=== PATIENT | male | born 1965 | race African-American/Black ===

== ENCOUNTER 2020-07-08 11:05 | Inpatient (IN) ==
[~2020-07-08 11:05] MED LIST: ASPIRIN 325 MG TABLET PO ONE; DIAZEPAM 5 MG TABLET PO ONE; MAGNESIUM SULF RIDER 2 GM in PREMIX 1 EACH IV PRN; POTASSIUM CHLORIDE RIDER 10 MEQ in PREMIX 1 EACH IV PRN; diphenhydrAMINE CAP 50 MG CAPSULE PO ONE
[2020-07-08] MEDS ORDERED: ASPIRIN 325 MG TABLET ONE (12:05)
[2020-07-08] MEDS ORDERED: diphenhydrAMINE CAP 50 MG CAPSULE ONE (12:05)
[2020-07-08] MEDS ORDERED: DIAZEPAM 5 MG TABLET ONE (12:05)
[2020-07-08] MEDS: SODIUM CHLORIDE 0.9% 1,000 ML IV SCH (12:07)
[2020-07-08 12:10] LABS: Basophils % 0.1 % (0.0-0.8); Hematocrit 21.2 VOL% (42.0-52.0); Hemoglobin 6.8 GM/DL (14.0-18.0); Immature Granulocytes % 1.1 %; Immature Granulocytes Absolute 0.29 #; Lymphocytes # 2.4 10*3/uL (1.4-4.0); Lymphocytes % 9.6 % (21.2-54.2); Mean Corpuscular HGB Conc 32.1 GM/DL (32-36); Mean Platelet Volume 8.8 FL (9.6-12.0); Monocytes % 5.5 % (1.7-12.7); NRBC # 0.06 10*3/uL; Neutrophils % 83.7 % (38.7-73.9); Platelet Count 627 T/CUMM (130-400); Red Blood Count 2.33 MC/CUMM (3.8-5.5); Red Cell Distribution Width 13.8 % (9.3-17.3); White Blood Count 25.5 T/CUMM (4-12)
[2020-07-08 12:22] LABS: INR 1.4; PT Patient Result 14.6 SECS (9.8-11.9)
[2020-07-08] MEDS ORDERED: SODIUM CHLORIDE 0.9% 1,000 ML IV PRN (12:27)
[2020-07-08 12:32] LABS: Band Neutrophils 1 % (0-10); Lymphocytes 10 % (20-55); Segmented Neutrophils 84 % (50-85); Total Cells Counted 100
[2020-07-08 12:33] LABS: Anisocytosis 2+; Macrocytosis 1+; Platelet Estimate Increased; Polychromasia Slight
[2020-07-08 13:04] LABS: Alanine Aminotransferase 88 U/L (16-61); Alkaline Phosphatase 73 U/L (45-117); Aspartate Amino Transferase 57 U/L (0-37); Bilirubin,Total < 0.39 MG/DL (0.2-1.0); Blood Urea Nitrogen 21 MG/DL (7-18); Calcium 8.8 MG/DL (8.5-10.1); Carbon Dioxide 26 MMOL/L (21-32); Estimated Glom Filtration Rate 110 ML/MIN; Glucose 129 MG/DL (74-106); Osmolality,Calculated 274.1 MOS/KG (273-304); Potassium 3.6 MMOL/L (3.5-5.1); Sodium 135 MMOL/L (136-145); Total Protein 7.4 G/DL (6.4-8.3)
[2020-07-08] MEDS ORDERED: ACETAMINOPHEN 500 MG TABLET PO PRN (13:19)
[2020-07-08] MEDS: PIPERACILLIN/TAZOBACTAM 3,375 MG in SODIUM CHLORIDE 0.9% 100 ML IV SCH (15:32)
[2020-07-08] MEDS: PANTOPRAZOLE 40 MG TABLET PO SCH ×2 (15:32→21:19)
[2020-07-08] MEDS ORDERED: GLUCAGON 1 MG VIAL IM PRN ×2 (15:39→15:40)
[2020-07-08] MEDS ORDERED: DEXTROSE 50% 25 GM/50 ML VIAL IV PRN ×2 (15:39→15:40)
[2020-07-08] MEDS: INSULIN REGULAR 100 UNIT/ML SUBCUT SCH ×2 (16:41→21:19)
[2020-07-08 20:30] LABS: Bilirubin,Urine Negative (Negative); Blood, Urine Negative (Negative); Glucose,Urine (UA) Negative (Negative); Ketones,Urine Negative (Negative); Nitrite,Urine Negative (Negative); Protein,Urine Negative; RBC,Urine 1 /HPF (0-4); Squamous Epithelial Cell,Urine Occasional /HPF (0-10); Urine Appearance CLEAR (Clear); Urine Color Straw (Yellow); Urine Specific Gravity 1.057 (1.001-1.035); Urine Urobilinogen < 2.0 EU/DL (0.2-1.0); WBC,Urine 1 /HPF (0-6)
[2020-07-08] MEDS: ATORVASTATIN 40 MG TABLET PO SCH (21:19)
[2020-07-08] MEDS: METOPROLOL TARTRATE 25 MG TABLET PO SCH (21:19)
[2020-07-09] MEDS: VANCOMYCIN INJ 1,000 MG in SODIUM CHLORIDE 0.9% 250 ML IV SCH ×3 (00:26→23:23)
[2020-07-09] MEDS: PIPERACILLIN/TAZOBACTAM 3,375 MG in SODIUM CHLORIDE 0.9% 100 ML IV SCH ×3 (01:49→18:49)
[2020-07-09 06:08] LABS: Basophils # 0.1 10*3/uL (0.0-0.2); Basophils % 0.3 % (0.0-0.8); Eosinophils % 0.1 % (0.00-10.9); Hematocrit 25.5 VOL% (42.0-52.0); Hemoglobin 8.3 GM/DL (14.0-18.0); Immature Granulocytes % 1.3 %; Immature Granulocytes Absolute 0.26 #; Lymphocytes # 1.6 10*3/uL (1.4-4.0); Mean Corpuscular HGB Conc 32.5 GM/DL (32-36); Mean Corpuscular Volume 90.7 FL (87-102); Mean Platelet Volume 8.5 FL (9.6-12.0); Monocytes % 7.5 % (1.7-12.7); NRBC # 0.08 10*3/uL; Neutrophils % 82.8 % (38.7-73.9); Platelet Count 437 T/CUMM (130-400); Red Blood Count 2.81 MC/CUMM (3.8-5.5); Red Cell Distribution Width 13.6 % (9.3-17.3); White Blood Count 19.9 T/CUMM (4-12)
[2020-07-09 06:52] LABS: Calcium 8.6 MG/DL (8.5-10.1); Osmolality,Calculated 276.7 MOS/KG (273-304); Potassium 3.5 MMOL/L (3.5-5.1)
[2020-07-09] MEDS: INSULIN REGULAR 100 UNIT/ML SUBCUT SCH ×4 (07:46→20:16)
[2020-07-09] MEDS ORDERED: SODIUM CHLORIDE 0.9% 1,000 ML IV PRN (10:00)
[2020-07-09] MEDS ORDERED: SODIUM CHLORIDE 0.9% 0 ML IV ONE (11:07)
[2020-07-09] MEDS: ASPIRIN CHEW 81 MG TABLET PO SCH (11:13)
[2020-07-09] MEDS: CLOPIDOGREL 75 MG TABLET PO SCH (11:13)
[2020-07-09] MEDS: METOPROLOL TARTRATE 25 MG TABLET PO SCH ×2 (11:13→20:15)
[2020-07-09] MEDS: MUPIROCIN 2% OINT 22 GM TUBE TOP SCH (11:13)
[2020-07-09] MEDS: PANTOPRAZOLE 40 MG TABLET PO SCH ×2 (11:14→20:15)
[2020-07-09] MEDS ORDERED: SODIUM CHLORIDE 0.9% 250 ML IV ONE ×3 (11:17→23:17)
[2020-07-09] MEDS: ATORVASTATIN 40 MG TABLET PO SCH (20:15)
[2020-07-10] MEDS: PIPERACILLIN/TAZOBACTAM 3,375 MG in SODIUM CHLORIDE 0.9% 100 ML IV SCH ×3 (00:45→18:34)
[2020-07-10 05:58] LABS: Basophils % 0.3 % (0.0-0.8); Eosinophils # 0.1 10*3/uL (0.0-0.87); Eosinophils % 0.4 % (0.00-10.9); Hemoglobin 9.3 GM/DL (14.0-18.0); Immature Granulocytes % 0.8 %; Immature Granulocytes Absolute 0.12 #; Lymphocytes # 1.1 10*3/uL (1.4-4.0); Lymphocytes % 6.8 % (21.2-54.2); Mean Corpuscular HGB Conc 34.4 GM/DL (32-36); Mean Corpuscular Volume 87.9 FL (87-102); Mean Platelet Volume 8.5 FL (9.6-12.0); Monocytes % 6.9 % (1.7-12.7); NRBC # 0.06 10*3/uL; Neutrophils % 84.8 % (38.7-73.9); Platelet Count 405 T/CUMM (130-400); Red Blood Count 3.07 MC/CUMM (3.8-5.5); Red Cell Distribution Width 13.9 % (9.3-17.3); White Blood Count 15.8 T/CUMM (4-12)
[2020-07-10 06:17] LABS: Calcium 8.4 MG/DL (8.5-10.1); Osmolality,Calculated 265.2 MOS/KG (273-304); Potassium 3.4 MMOL/L (3.5-5.1)
[2020-07-10] MEDS: INSULIN REGULAR 100 UNIT/ML SUBCUT SCH ×4 (08:12→20:55)
[2020-07-10] MEDS: ASPIRIN CHEW 81 MG TABLET PO SCH (08:31)
[2020-07-10] MEDS: MULTIVITAMIN (CENTRUM) TABLET PO SCH (08:31)
[2020-07-10] MEDS: CLOPIDOGREL 75 MG TABLET PO SCH (08:32)
[2020-07-10] MEDS: POTASSIUM CHLORIDE 20 MEQ TABLET PO PRN (08:32)
[2020-07-10] MEDS: PANTOPRAZOLE 40 MG TABLET PO SCH ×2 (08:32→20:12)
[2020-07-10] MEDS: METOPROLOL TARTRATE 25 MG TABLET PO SCH ×2 (08:32→20:12)
[2020-07-10] MEDS: CHOLECALCIFEROL 1,000 UNIT TABLET PO SCH (08:32)
[2020-07-10] MEDS: MUPIROCIN 2% OINT 22 GM TUBE TOP SCH (08:33)
[2020-07-10] MEDS ORDERED: MAGNESIUM SULF RIDER 2 GM in PREMIX 1 EACH IV PRN (08:59)
[2020-07-10] MEDS ORDERED: POTASSIUM CHLORIDE RIDER 10 MEQ in PREMIX 1 EACH IV PRN (08:59)
[2020-07-10] MEDS ORDERED: DIAZEPAM 5 MG TABLET PO ONE (08:59)
[2020-07-10] MEDS ORDERED: diphenhydrAMINE CAP 25 MG CAPSULE PO ONE (09:00)
[2020-07-10] MEDS: VANCOMYCIN INJ 1,000 MG in SODIUM CHLORIDE 0.9% 250 ML IV SCH ×2 (12:40→23:27)
[2020-07-10] MEDS ORDERED: LIDOCAINE 1% 20 ML VIAL ONE (14:48)
[2020-07-10] MEDS ORDERED: HYDROmorphone 2 MG/1 ML VIAL ONE (14:49)
[2020-07-10] MEDS ORDERED: MIDAZOLAM 2 MG/2 ML VIAL ONE (14:50)
[2020-07-10] MEDS ORDERED: HEPARIN 5,000 UNIT/1 ML VIAL ONE ×2 (15:28→16:13)
[2020-07-10] MEDS ORDERED: hydrALAZINE 20 MG/1 ML VIAL ONE (15:29)
[2020-07-10] MEDS ORDERED: SODIUM CHLORIDE 0.9% 1,000 ML IV PRN (16:57)
[2020-07-10] MEDS: ATORVASTATIN 40 MG TABLET PO SCH (20:12)
[2020-07-10] MEDS: oxyCODONE/ACETAMINOPHEN 5-325 MG TABLET PO PRN (21:14)
[2020-07-10] MEDS: SODIUM CHLORIDE 0.9% 1,000 ML IV SCH ×2 (22:33→22:34)
[2020-07-11] MEDS: POTASSIUM CHLORIDE 20 MEQ TABLET PO PRN ×3 (02:30→05:53)
[2020-07-11] MEDS: PIPERACILLIN/TAZOBACTAM 3,375 MG in SODIUM CHLORIDE 0.9% 100 ML IV SCH ×3 (02:49→17:49)
[2020-07-11 02:57] LABS: Basophils % 0.3 % (0.0-0.8); Eosinophils # 0.1 10*3/uL (0.0-0.87); Eosinophils % 0.4 % (0.00-10.9); Hematocrit 34.7 VOL% (42.0-52.0); Immature Granulocytes % 0.4 %; Immature Granulocytes Absolute 0.07 #; Lymphocytes # 1.1 10*3/uL (1.4-4.0); Lymphocytes % 6.9 % (21.2-54.2); Mean Corpuscular HGB Conc 33.7 GM/DL (32-36); Mean Corpuscular Volume 87.6 FL (87-102); Mean Platelet Volume 8.4 FL (9.6-12.0); Monocytes % 9.7 % (1.7-12.7); NRBC # 0.06 10*3/uL; Neutrophils % 82.3 % (38.7-73.9); Platelet Count 408 T/CUMM (130-400); Red Blood Count 3.96 MC/CUMM (3.8-5.5); Red Cell Distribution Width 14.5 % (9.3-17.3); White Blood Count 15.7 T/CUMM (4-12)
[2020-07-11 03:01] LABS: Hemoglobin 11.7 GM/DL (14.0-18.0)
[2020-07-11 03:28] LABS: Calcium 8.4 MG/DL (8.5-10.1); Osmolality,Calculated 269.1 MOS/KG (273-304); Potassium 3.3 MMOL/L (3.5-5.1)
[2020-07-11] MEDS: oxyCODONE/ACETAMINOPHEN 5-325 MG TABLET PO PRN ×2 (04:30→21:06)
[2020-07-11] MEDS: SODIUM CHLORIDE 0.9% 1,000 ML IV SCH ×2 (05:25→15:10)
[2020-07-11] MEDS: INSULIN REGULAR 100 UNIT/ML SUBCUT SCH ×4 (08:55→21:06)
[2020-07-11] MEDS ORDERED: LIDOCAINE 2% 5 ML VIAL ONE (12:41)
[2020-07-11] MEDS: LACTATED RINGERS 1,000 ML IV SCH (12:45)
[2020-07-11] MEDS ORDERED: propofoL 200 MG/20 ML VIAL IV ONE (12:51)
[2020-07-11] MEDS: MULTIVITAMIN (CENTRUM) TABLET PO SCH (15:31)
[2020-07-11] MEDS: CHOLECALCIFEROL 1,000 UNIT TABLET PO SCH (15:31)
[2020-07-11] MEDS: ASPIRIN CHEW 81 MG TABLET PO SCH (15:31)
[2020-07-11] MEDS: METOPROLOL TARTRATE 25 MG TABLET PO SCH ×2 (15:32→21:05)
[2020-07-11] MEDS: PANTOPRAZOLE 40 MG TABLET PO SCH ×2 (15:33→21:05)
[2020-07-11] MEDS: MUPIROCIN 2% OINT 22 GM TUBE TOP SCH (15:33)
[2020-07-11] MEDS: VANCOMYCIN INJ 1,000 MG in SODIUM CHLORIDE 0.9% 250 ML IV SCH (16:26)
[2020-07-11] MEDS: ATORVASTATIN 40 MG TABLET PO SCH (21:05)
[2020-07-12] MEDS: VANCOMYCIN INJ 1,000 MG in SODIUM CHLORIDE 0.9% 250 ML IV SCH ×3 (00:20→23:55)
[2020-07-12] MEDS: SODIUM CHLORIDE 0.9% 1,000 ML IV SCH ×3 (00:47→20:19)
[2020-07-12] MEDS: PIPERACILLIN/TAZOBACTAM 3,375 MG in SODIUM CHLORIDE 0.9% 100 ML IV SCH ×3 (01:28→17:32)
[2020-07-12] MEDS: oxyCODONE/ACETAMINOPHEN 5-325 MG TABLET PO PRN ×2 (03:46→13:46)
[2020-07-12 05:20] LABS: Basophils % 0.3 % (0.0-0.8); Eosinophils # 0.2 10*3/uL (0.0-0.87); Eosinophils % 1.1 % (0.00-10.9); Hemoglobin 11.3 GM/DL (14.0-18.0); Immature Granulocytes % 0.8 %; Immature Granulocytes Absolute 0.12 #; Lymphocytes # 1.3 10*3/uL (1.4-4.0); Mean Corpuscular HGB Conc 34.2 GM/DL (32-36); Mean Corpuscular Volume 86.8 FL (87-102); Mean Platelet Volume 8.5 FL (9.6-12.0); Monocytes % 10.7 % (1.7-12.7); Neutrophils % 79.1 % (38.7-73.9); Platelet Count 465 T/CUMM (130-400); Red Cell Distribution Width 14.9 % (9.3-17.3); White Blood Count 15.7 T/CUMM (4-12)
[2020-07-12 05:44] LABS: Calcium 8.6 MG/DL (8.5-10.1); Osmolality,Calculated 268.1 MOS/KG (273-304); Potassium 3.8 MMOL/L (3.5-5.1)
[2020-07-12] MEDS: INSULIN REGULAR 100 UNIT/ML SUBCUT SCH ×4 (07:56→20:19)
[2020-07-12] MEDS: PANTOPRAZOLE 40 MG TABLET PO SCH ×2 (08:44→20:18)
[2020-07-12] MEDS: CHOLECALCIFEROL 1,000 UNIT TABLET PO SCH (08:45)
[2020-07-12] MEDS: MULTIVITAMIN (CENTRUM) TABLET PO SCH (08:45)
[2020-07-12] MEDS: ASPIRIN CHEW 81 MG TABLET PO SCH (08:45)
[2020-07-12] MEDS: METOPROLOL TARTRATE 25 MG TABLET PO SCH ×2 (08:45→20:18)
[2020-07-12] MEDS: LACTATED RINGERS 1,000 ML IV SCH (13:55)
[2020-07-12] MEDS: MUPIROCIN 2% OINT 22 GM TUBE TOP SCH (15:44)
[2020-07-12] MEDS: ATORVASTATIN 40 MG TABLET PO SCH (20:18)
[2020-07-13] MEDS: PIPERACILLIN/TAZOBACTAM 3,375 MG in SODIUM CHLORIDE 0.9% 100 ML IV SCH ×2 (00:57→08:53)
[2020-07-13 05:54] LABS: Basophils # 0.1 10*3/uL (0.0-0.2); Basophils % 0.4 % (0.0-0.8); Eosinophils # 0.2 10*3/uL (0.0-0.87); Eosinophils % 1.2 % (0.00-10.9); Hematocrit 35.3 VOL% (42.0-52.0); Hemoglobin 11.6 GM/DL (14.0-18.0); Immature Granulocytes % 0.7 %; Immature Granulocytes Absolute 0.12 #; Lymphocytes # 1.4 10*3/uL (1.4-4.0); Lymphocytes % 8.3 % (21.2-54.2); Mean Corpuscular HGB Conc 32.9 GM/DL (32-36); Mean Corpuscular Volume 89.4 FL (87-102); Mean Platelet Volume 8.3 FL (9.6-12.0); Monocytes % 7.9 % (1.7-12.7); Neutrophils % 81.5 % (38.7-73.9); Platelet Count 522 T/CUMM (130-400); Red Blood Count 3.95 MC/CUMM (3.8-5.5); Red Cell Distribution Width 14.3 % (9.3-17.3); White Blood Count 17.1 T/CUMM (4-12)
[2020-07-13 06:16] LABS: Calcium 8.8 MG/DL (8.5-10.1); Osmolality,Calculated 273.7 MOS/KG (273-304); Potassium 3.7 MMOL/L (3.5-5.1)
[2020-07-13] MEDS: SODIUM CHLORIDE 0.9% 1,000 ML IV SCH (06:29)
[2020-07-13] MEDS: INSULIN REGULAR 100 UNIT/ML SUBCUT SCH ×2 (07:27→12:04)
[2020-07-13 07:49] VITALS: BP 123/90
[2020-07-13] MEDS: METOPROLOL TARTRATE 25 MG TABLET PO SCH (08:53)
[2020-07-13] MEDS: CHOLECALCIFEROL 1,000 UNIT TABLET PO SCH (08:53)
[2020-07-13] MEDS: PANTOPRAZOLE 40 MG TABLET PO SCH (08:53)
[2020-07-13] MEDS: MULTIVITAMIN (CENTRUM) TABLET PO SCH (08:53)
[2020-07-13] MEDS: ASPIRIN CHEW 81 MG TABLET PO SCH (08:53)
[2020-07-13] MEDS: MUPIROCIN 2% OINT 22 GM TUBE TOP SCH (08:54)
== END 2020-07-13 11:42 | disposition hospice, home (50) | DRG 982 ==
LOC: N.CL 11:05 → N.3E 13:21 → N.TELES 07-11 02:26
PROVIDERS: ADMIT Internal Medicine Cardiovascular Disease; ATTEND Internal Medicine Cardiovascular Disease